=== PATIENT | male | born 1950 | race Caucasian/White ===

== ENCOUNTER 2017-09-04 10:22 | Day surgery (SDC) | payer OTHER ==
[~2017-09-04] VITALS: Ht 175.3 cm; Wt 82.0 kg
[~2017-09-04 10:22] MED LIST: AMLO10; Aspir 8181 MG PO; GABA300; LOSHYD; MELO7.5; PRAV20; Percocet 5-3251 EACH PO; ZOLP5
== END 2017-09-04 13:50 | disposition home or self-care (01) ==
LOC: ORSCSDS 10:22
PROVIDERS: Orthopaedic Surgery
PROC: 0SPD04Z Removal of Internal Fixation Device from Left Knee Joint, Open Approach (ICD-10-PCS; principal; 2017-09-04 11:45)
DX: T84.84XA Pain due to internal orthopedic prosthetic devices, implants and grafts, initial encounter (principal); I10 Essential (primary) hypertension; E78.00 Pure hypercholesterolemia, unspecified; Z79.82 Long term (current) use of aspirin; Z79.899 Other long term (current) drug therapy
CPT/HCPCS: J0171; J0690; J1100; J2250; J2405; J3010; J7120

== ENCOUNTER → 2022-06-21 | Outpatient (CLI) | payer OTHER ==
[2022-06-21 19:35] LABS: BASOPHILS ABSOLUTE AUTO 0.05 K/mm3 (0.00-0.23); BASOPHILS PERCENT AUTO 1 % (0-2); EOSINOPHILS ABSOLUTE AUTO 0.21 K/mm3 (0.00-0.68); EOSINOPHILS PERCENT AUTO 3 % (0-6); Hematocrit 43.4 % (37.0-53.0); Hemoglobin 14.9 g/dL (13.5-17.5); IMMATURE GRAN ABSOLUTE AUTO 0.02 K/mm3 (0.00-0.10); IMMATURE GRAN PERCENT AUTO 0 % (0-1); LYMPHOCYTES ABSOLUTE AUTO 1.91 K/mm3 (0.84-5.20); LYMPHOCYTES PERCENT AUTO 26 % (21-46); MONOCYTES ABSOLUTE AUTO 0.59 K/mm3 (0.16-1.47); MONOCYTES PERCENT AUTO 8 % (4-13); Mean Corpuscular HGB 31.1 pg (26.0-34.0); Mean Corpuscular HGB Conc 34.3 g/dL (31.5-36.5); Mean Corpuscular Volume 91 fL (80-100); Mean Platelet Volume 10.1 fL (9.1-12.4); NEUTROPHILS ABSOLUTE AUTO 4.47 K/mm3 (1.96-9.15); NEUTROPHILS PERCENT AUTO 62 % (41-73); Platelet Count 178 K/mm3 (150-400); RDW Coefficient Variation 13.1 % (11.7-14.2); RDW Standard Deviation 43.2 fL (35.1-46.3); Red Blood Cell Count 4.79 M/mm3 (4.30-5.90); White Blood Cell Count 7.25 K/mm3 (4.00-11.30)
[2022-06-21 19:44] LABS: Alanine Aminotransfer (ALT/SGP 32 U/L (12-78); Albumin, Blood 4.1 g/dL (3.4-5.0); Albumin/Globulin Ratio 1.2 (0.8-1.8); Alk Phos 66 U/L (50-136); Anion Gap 7 mmol/L (6-16); Aspartate Aminotrans (AST/SGOT 24 U/L (12-37); Bilirubin, Total 0.4 mg/dL (0.1-1.0); Blood Urea Nitrogen 12 mg/dL (8-24); Bun/Creatinine Ratio 17.5 (12.0-20.0); CHOL/HDL RATIO 2.7; CO2, Blood 26 mmol/L (21-32); Calcium, Blood 9.2 mg/dL (8.5-10.1); Chloride, Blood 108 mmol/L (98-108); Cholesterol 181 mg/dL (50-200); Creatinine, Blood 0.69 mg/dL (0.60-1.20); Globulin, Blood 3.4 g/dL (2.2-4.0); Glomerular Filtration Rate 98 (60-); Glucose, Blood 100 mg/dL (70-99); HDL Cholesterol 67 mg/dL (>39); LDL/HDL RATIO 1.6; Low Density Lipoprotein Chol 105 mg/dL (0-110); Potassium, Blood 3.6 mmol/L (3.5-5.5); Sodium, Blood 141 mmol/L (136-145); Total Protein, Blood 7.5 g/dL (6.4-8.2); Triglycerides 44 mg/dL (30-160); Very Low Density Lipoprot Chol 8 mg/dL (6-32)
== END ==
LOC: LAB SHORT 12:33 → LAB 12:33
PROVIDERS: Family Medicine
DX: I10 Essential (primary) hypertension (principal); E11.9 Type 2 diabetes mellitus without complications; E78.5 Hyperlipidemia, unspecified
CPT/HCPCS: 80053; 80061; 83036; 85025

== ENCOUNTER 2025-06-18 08:46 | Day surgery (SDC) | payer OTHER ==
[~2025-06-18] VITALS: Ht 173 cm; Wt 78.9 kg
[2025-06-18] VITALS (11 sets, daily range): BP systolic 106–153; BP diastolic 58–73
[~2025-06-18 08:46] MED LIST changes: -AMLO10; +AMLO10 PO; +ATOR10 PO; +CeFAZolin Sodium 2,000 MG in NS 100 ML IV SCH; +Chlorhexidine Mouth Care 15 ML UDC MT SCH; -GABA300; +GABA300 PO; +HYDROCHLOROTH12.5 MG PO; +LOSA50 PO; -MELO7.5; +MOBIC15 MG PO; -PRAV20; +PRAV20 PO; +Ropivacaine 0.5% HCl/Pf 123.125 MG,EPINEPHrine HCL 0.25 MG,Ketorolac Tromethamine 15 MG... INFIL SCH; +Tranexamic Acid 100 ML IV SCH
[2025-06-18] MEDS ORDERED: FentaNYL Citrate 50 MCG/ML 2 ML Injection ONE (09:15)
[2025-06-18] MEDS ORDERED: ASPIR 8181 M1 PO (09:18)
--- NOTE | 2025-06-18 10:24 | NUR ---
Ambulatory in Day Surgery. History, Chart, Medications and Allergies reviewed before start of procedure.Patient confirms NPO status and agrees with scheduled surgery. Patient reports completing Chlorhexadine shower X2 prior to admission to hospital. PATIENT REPORT SHAVED UPPER RIGHT THIGH HIMSELF AT HOME. NO SKIN TEARS NOTED. DISCUSSED WITH DR. Araya.
[2025-06-18] MEDS ORDERED: Midazolam HCl 1MG / ML 2ML Vial ONE (10:57)
[2025-06-18] MEDS ORDERED: Glycopyrrolate 0.2 MG/ML 5ML VIAL ONE (11:21)
[2025-06-18] MEDS ORDERED: ePHEDrine Sulfate 50 MG/ML 1ML Injection ONE (11:39)
[2025-06-18] MEDS ORDERED: Metoclopramide HCl 5MG / ML 2ML Vial IV PRN (12:50)
[2025-06-18] MEDS ORDERED: HYDROmorphone HCl/Pf 1MG SYR IV PRN (12:50)
[2025-06-18] MEDS ORDERED: Ondansetron HCl 2 MG / ML 2ML Vial IV PRN (12:50)
[2025-06-18] MEDS ORDERED: FLU VACC TS2025(65UP)/MF59C/PF 45 MCG/0.5 ML SYRINGE IM SCH (13:05)
[2025-06-18] MEDS ORDERED: OXYC5 PO ×2 (14:28→14:29)
[2025-06-18] MEDS ORDERED: BACTRIM DS TAB1 EAC2 PO (14:28)
[2025-06-18] MEDS ORDERED: ACET500 PO (14:29)
[2025-06-18] MEDS ORDERED: Ketorolac Tromethamine 15mg Vial IV SCH (18:00)
--- NOTE | 2025-06-18 18:25 | NUR ---
ARRIVAL TO SURG FLOOR TO FLOOR VIA GURNEY. A&O x4, VSS. R KNEE w/TELFA, TEGADERM, & AQUACEL. POLAR PACK IN PLACE. STATES NO PAIN AT THIS TIME. AWAITING POST OP VOID. SNACKS & DRINKS GIVEN. CURRENTLY RESTING IN BED w/CALL LIGHT WITHIN REACH.
--- NOTE | 2025-06-18 18:34 | NUR ---
DISCHARGE SUMMARY S/P R TKA. A&O x4, VSS. R KNEE w/TELFA, TEGADERM, & SCOUT WRAP, NO DRAINAGE, C/D/I. TOLERATING FOOD & FLUIDS WELL. WORKED w/THERAPY - AMBULATED IN HALLWAY & ROOM w/WALKER. VOIDED SUCCESSFULLY. STATES NO PAIN SINCE ARRIVAL. DISCHARGE INSTRUCTIONS REVIEWED & GIVEN. POLAR PACK SENT. ESCORTED OUT VIA WC.
[2025-06-18] MEDS ORDERED: CeFAZolin Sodium 2,000 MG in NS 100 ML IV SCH (19:00)
[2025-06-19] MEDS ORDERED: Trimethoprim/Sulfamethoxazole DS Tab PO SCH (09:00)
== END 2025-06-18 18:18 | disposition home or self-care (01) ==
LOC: ORSCMMR 08:46 → ORD 10:00 → ORSCMMR 10:45 → ORD 10:45 → SURS 14:35 → ORSCMMR 18:18
PROVIDERS: Orthopaedic Surgery
PROC: 0SRC0J9 Replacement of Right Knee Joint with Synthetic Substitute, Cemented, Open Approach (ICD-10-PCS; principal; 2025-06-18 10:45)
DX: M17.11 Unilateral primary osteoarthritis, right knee (principal); I10 Essential (primary) hypertension; F32.A Depression, unspecified; Z79.899 Other long term (current) drug therapy; Z87.891 Personal history of nicotine dependence; Z96.643 Presence of artificial hip joint, bilateral
CPT/HCPCS: 73560-RT; 97116; 97161; 97530; A9270; C1713; C1776; J0166; J0690; J0735; J1885; J2250; J2704; J2795; J3010; J3373; J7050; J7120